=== PATIENT | female | born 1995 | race Caucasian/White ===

== ENCOUNTER 2018-09-24 15:07 | Observation (INO) | payer SELFPAY ==
[~2018-09-24] VITALS: Ht 165.1 cm; Wt 63.5 kg
[2018-09-24] MEDS ORDERED: ONDANSETRON PF 4 MG/2 ML VIAL. ONE (15:14)
[2018-09-24] MEDS ORDERED: LIDOCAINE 2% PF Vial for OR 5 ML VIAL. ONE (15:14)
[2018-09-24] MEDS ORDERED: PROPOFOL 20 ML IV ONE (15:14)
[2018-09-24] MEDS ORDERED: FAMOTIDINE 20 MG/2 ML VIAL ONE (15:14)
[2018-09-24] MEDS ORDERED: KETOROLAC 30 MG/ML INJ FOR OR. INJ ONE (15:14)
[2018-09-24] MEDS ORDERED: SUCCINYLCHOLINE 200 MG/10 ML VIAL. ONE (15:14)
[2018-09-24] MEDS ORDERED: DEXAMETHASONE SOD PHOS 20 MG/5 ML VIAL. ONE (15:14)
[2018-09-24] MEDS ORDERED: MIDAZOLAM HCL/PF 2 MG/2 ML VIAL. ONE (15:15)
[2018-09-24] MEDS ORDERED: KETAMINE HCL IN STERILE WATER 50 MG/5 ML SYRINGE ONE (15:41)
[2018-09-24] MEDS ORDERED: OXYTOCIN 10 UNIT/ML VIAL. ONE (15:46)
[2018-09-24] MEDS ORDERED: miSOPROStol 200MCG TAB 200 MCG TABLET ONE (15:49)
[2018-09-24] MEDS ORDERED: SEVOFLURANE 31 TO 60 MINUTES. IH ONE (15:50)
--- NOTE | 2018-09-24 16:03 | PDOC ---
GENERAL General: 22 yrs old female transfered from [facility] for with Vaginal Bleeding since08/16/19. Pt has passed some tissues and bleeding heavy now and Passing Clots. Immediately Pt scheduled for D&C Suction Curettage. ALLERGIES Allergies: Allergies Coded Allergies Type Severity Reaction Last Updated Verified No Known Drug Allergies 09/24/18 No MEDS Medications: Current Medications Medications (Trade) Dose Ordered Sig/[place] Start Time Stop Time Status Last Admin Dose Admin Cefazolin Sodium/ Dextrose 50 ml @ As Directed STK-MED ONCE 09/24/18 15:18 09/24/18 15:19 DC Dexamethasone Sodium Phosphate (Decadron) 20 mg STK-MED ONCE 09/24/18 15:14 09/24/18 15:16 DC Famotidine (Pepcid Vial) 20 mg STK-MED ONCE 09/24/18 15:14 09/24/18 15:16 DC Ketamine HCl (Ketamine) 50 mg STK-MED ONCE 09/24/18 15:41 09/24/18 15:42 DC Ketorolac Tromethamine (Toradol For Or Only) 30 mg STK-MED ONCE 09/24/18 15:14 09/24/18 15:16 DC Lidocaine HCl (Lidocaine Pf 2% Vial) 5 ml STK-MED ONCE 09/24/18 15:14 09/24/18 15:16 DC Midazolam HCl (Versed) 2 mg STK-MED ONCE 09/24/18 15:15 09/24/18 15:16 DC Misoprostol (Cytotec 200mcg Tab) 200 mcg STK-MED ONCE 09/24/18 15:49 09/24/18 15:50 DC Ondansetron HCl (Zofran) 4 mg STK-MED ONCE 09/24/18 15:14 09/24/18 15:16 DC Oxytocin (Pitocin) 10 unit STK-MED ONCE 09/24/18 15:46 09/24/18 15:47 DC Propofol 20 ml @ As Directed STK-MED ONCE 09/24/18 15:14 09/24/18 15:16 DC Sevoflurane (Ultane) 30 ml STK-MED ONCE 09/24/18 15:50 09/24/18 15:52 DC Succinylcholine Chloride (Anectine) 200 mg STK-MED ONCE 09/24/18 15:14 09/24/18 15:16 DC ASSESSMENT & PLAN A&P Under GA D&C Suction Curettage done.EBL.300cc. Pt has 9.8Hb. She can go home after surgery. Will see her in 2 weeks in office. ADI DAVIES MD Sep 24, 2018 16:03
[2018-09-24] MEDS ORDERED: fentaNYL PF VIAL 100 MCG/2 ML VIAL ONE (16:12)
[2018-09-24] MEDS ORDERED: IV RINGERS,LACTATED 1000ML 1,000 ML IV SCH (16:13)
[2018-09-24] MEDS ORDERED: LIDOCAINE 1% PF 2 ML VIAL. ID PRN (16:15)
[2018-09-24] MEDS ORDERED: ONDANSETRON PF 4 MG/2 ML VIAL. IV PRN (16:15)
[2018-09-24] MEDS ORDERED: fentaNYL PF VIAL 100 MCG/2 ML VIAL IV PRN ×2 (16:15)
[2018-09-24] MEDS ORDERED: HYDROmorphone 2 MG/ML VIAL IV PRN (16:15)
[2018-09-24] MEDS ORDERED: PROCHLORPERAZINE 10 MG/2 ML VIAL. IV PRN (16:15)
[2018-09-24] MEDS ORDERED: KETOROLAC 30 MG/ML VIAL. ONE (16:22)
[2018-09-24] MEDS: KETOROLAC 30 MG/ML VIAL. IV PRN ×2 (16:25→22:18)
[2018-09-24] MEDS ORDERED: PROCHLORPERAZINE 10 MG/2 ML VIAL. ONE (16:35)
[2018-09-24] MEDS: MORPHINE SULFATE 4 MG/ML VIAL. IV PRN ×2 (16:36→16:46)
--- NOTE | 2018-09-24 16:45 | OP ---
DATE OF SURGERY: 09/24/2018 PREOPERATIVE DIAGNOSIS: Incomplete . POSTOPERATIVE DIAGNOSIS: Incomplete . OPERATION PERFORMED: D and C, suction curettage. DESCRIPTION OF PROCEDURE: The patient was taken to the operating room. Under general anesthesia, she was placed in a dorsal lithotomy position. Perineum was prepped and draped in the usual manner. Weighted speculum inserted in the posterior vaginal wall. Anterior lip of the cervix held with a tenaculum. Uterine sound was used to measure the length of the uterine cavity, which appears to be about 10 cm and cervix was dilated first. A size 8 suction tip cannula was used to suction the uterus. All the curettings obtained were subjected for pathological examination. Medium-sized curette also used to curette the uterus. She did receive 20 units of Pitocin IV bottle of fluid during the time of the curettage and at the end of the curettage, speculum and tenaculum was removed. Cytotec was inserted into the uterus and the specimen sent to the lab for pathological examination. The patient tolerated the procedure well. Estimated blood loss about 300 mL. Postoperative condition was stable. She will be followed in the office in 2 weeks for further postop care and treatment. ADI DAIVES MD DR: AICHA/caroline JOB#: [id number] / [id number]
[2018-09-24 17:15] VITALS: BP 119/64
[2018-09-24 17:30] VITALS: BP 110/53
[2018-09-24 18:00] VITALS: BP 115/69
[2018-09-24] MEDS ORDERED: IBUPROFEN 400 MG TABLET. PO PRN (18:30)
[2018-09-24] MEDS ORDERED: oxyCODONE/APAP 5/325 1 TAB TABLET PO PRN (18:30)
[2018-09-24 21:43] VITALS: BP 128/75
[2018-09-24] MEDS: oxyCODONE/APAP 5/325 1 TAB TABLET PO PRN (23:15)
[2018-09-25 04:22] VITALS: BP 98/52
[2018-09-25] MEDS: oxyCODONE/APAP 5/325 1 TAB TABLET PO PRN ×2 (04:22→08:22)
[2018-09-25 10:10] VITALS: BP 101/62
--- NOTE | 2018-09-28 15:09 | PATHOLOGY ---
[facility] Accession Number: [id number] . 01 Material submitted: . PRODUCTS OF CONCEPTION . 01 Clinical history: . Incomplete AB . 02 Diagnosis: Uterine contents, suction D and C: - Products of conception, comprised of immature chorionic villi showing focal hydropic degenerative changes and containing nucleated red blood cells, and focally necrotic immature chorionic villi with focal intervillous fibrin and acute inflammation. (JPM/db; 09/28/2018) LBQ/09/28/2018 . 02 Electronically signed: . Alireza Wade MD, Pathologist NPI- [id number] . 01 Gross description: . The specimen is received in formalin, labeled "Yulisa Null, products of conception" and consists of a filter sock containing 35 g of blood clot admixed with pete-brown soft/villiform tissue measuring 8.0 x 6.5 x 2.4 cm in aggregate. A gestational sac is identified. No vesicular structures or parts are identified. A sales and marketing representative portion is submitted in A1-A3. (SDY; 09/27/2018) SYU/SYU . 02 Pathologist provided ICD-10: O03.4, O02.89 . 02 CPT . 012258 Specimen Comment: A courtesy copy of this report has been sent to Specimen Comment: [phone]. Specimen Comment: Report sent to Specimen Comment: A duplicate report has been generated due to demographic updates. Performed at: 01 [facility] [address], [place] [id number] MD Yoshi Aguilar MD Phone: [phone] Performed at: 02 [facility] [address] [place], [place] [id number] MD Alireza Wade MD Phone: [phone]
== END 2018-09-25 10:30 | disposition home or self-care (01) ==
LOC: SURG 15:07 → 3 NORTH 17:00
PROVIDERS: ADMIT Obstetrics & Gynecology; ATTEND Obstetrics & Gynecology
DX: O03.4 Incomplete spontaneous abortion without complication (principal); O02.89 Other abnormal products of conception
CPT/HCPCS: 59812; 96374; A7015; G0378; G0379; J0330; J0696; J0780; J1100; J1885; J2001; J2250; J2270; J2405; J2590; J2704; J3010; J3490; J7120; 88305